=== PATIENT | female | born 1970 | race Native Hawaiian/Other Pacific Islander ===

== ENCOUNTER 2020-10-23 18:15 | Emergency (ER) | payer BC, OTHER ==
[~2020-10-23] VITALS: Ht 162.6 cm; Wt 97.5 kg
[2020-10-23 21:17] LABS: POTASSIUM 3.5 mmol/L (3.6-5.2); SODIUM 140 mmol/L (136-145)
[2020-10-23 21:19] LABS: PLATELET COUNT 276 K/uL (152-353)
[2020-10-23 21:56] LABS: PARTIAL THROMBOPLASTIN TIME 24.9 SECONDS (24.5-33.6)
[2020-10-24 00:02] VITALS: BP 172/90; TEMP 98.7
== END 2020-10-24 00:03 | disposition home or self-care (01) ==
LOC: ED 18:15
PROVIDERS: Emergency Medicine
PROC: 0HQEXZZ Repair Left Lower Arm Skin, External Approach (ICD-10-PCS; principal; 2020-10-23)
DX: S20.219A Contusion of unspecified front wall of thorax, initial encounter (principal); S13.8XXA Sprain of joints and ligaments of other parts of neck, initial encounter; S51.012A Laceration without foreign body of left elbow, initial encounter; V43.52XA Car driver injured in collision with other type car in traffic accident, initial encounter; Y92.89 Other specified places as the place of occurrence of the external cause
CPT/HCPCS: 36415; 80053; 81000; 81025; 82150; 83690; 84484; 85008; 85027; 85610; 85730; 93005; 96374; 96375; 96376; 99284; J1885; J2405